=== PATIENT | male | born 1960 | race Caucasian/White ===

== ENCOUNTER 2019-04-18 13:56 | Emergency (ER) | payer OTHER, SELFPAY ==
--- NOTE | ~2019-04-18 | XR_ITS ---
EXAMINATION: XR hand RT min 3V EXAM DATE: 04/18/2019 14:26 INDICATION: Initial encounter following injury, with pain of the right hand. Injury one week ago aft er lifting heavy toe 2. TECHNIQUE: Right hand frontal, lateral and oblique projections obtained and reviewed. There is no pr ior study for comparison. FINDINGS: Right metacarpal bones are unremarkable. There is mild polyarticular primary osteoarthriti s. There are no acute fractures or dislocations identified. There is no subcutaneous gas. The soft tissue is unremarkable. There are no radiopaque foreign bodies. IMPRESSION: 1. XR hand RT min 3V exam without acute osseous findings. 2. Mild polyarticular osteoarthritis. Reviewed, dictated and finalized at location B. [employer]
[2019-04-18 14:05] VITALS: BP 153/74; PULSE 82; RESP 20; TEMP 36.6; O2SAT 97
--- NOTE | 2019-04-18 14:45 | ED.UPPEXIN ---
HPI - Extremity Injury (Upper) General Chief Complaint: Extremity Injury, Upper Stated Complaint: rt hand injury Time Seen by Provider: 04/18/19 14:30 Source: patient and RN notes reviewed History of Present Illness HPI narrative: Patient is a 58-year-old male that presents the urgent care with complaints of right hand pain. Patient states that he was carrying a tote approximately 1 week ago and caused no his hand to separate between the third and fourth digits. Patient states he heard something pop at that time.. Patient states that it is now causing him increased pain with any movement. States that it is increased pain when trying to make a fist. No other acute complaints. No acute distress noted. Patient had a plan of care. Related Data Home Medications Medication Instructions Recorded Confirmed allopurinol 100 mg tablet 100 mg PO BID 03/29/19 04/18/19 aspirin 81 mg tablet,delayed 81 mg PO DAILY 03/29/19 release atorvastatin 20 mg tablet 20 mg PO DAILY 03/29/19 candesartan 32 mg tablet 32 mg PO DAILY 03/29/19 04/18/19 diltiazem HCl 120 mg 120 mg PO DAILY 03/29/19 04/18/19 capsule,extended release 24 hr flaxseed oil 1,000 mg capsule 1,000 mg PO TID 03/29/19 04/18/19 sitagliptin 50 mg-metformin ER 1 tablet PO BID tablet 03/29/19 04/18/19 1,000 mg tablet,extended release 24h mp Novolog Mix 70-30FlexPen U-100 04/18/19 atorvastatin 20 mg PO DAILY 04/18/19 04/18/19 dapagliflozin [Farxiga] 10 mg PO DAILY 04/18/19 04/18/19 sulindac 150 mg PO BID 04/18/19 04/18/19 Allergies Allergy/AdvReac Type Severity Reaction Status Date / Time amoxicillin Allergy Unknown RASH Verified 04/18/19 14:12 prochlorperazine Allergy Unknown AGITATION Verified 04/18/19 14:12 Review of Systems Review of Systems: Narrative: CONSTITUTIONAL: Denies fever, chills, or sweats. EYES: Denies visual changes, redness, or discharge. ENT: Denies rhinorrhea, congestion, sore throat, or otalgia. CARDIOVASCULAR: Denies chest pain, palpitations, or edema. RESPIRATORY: Denies cough or dyspnea. GASTROINTESTINAL: Denies abdominal pain, nausea, vomiting, or diarrhea. GENITOURINARY: Denies dysuria or hematuria. SKIN: Denies rash or itching. MUSCULOSKELETAL: Reports of right hand pain NEUROLOGIC: Denies headache, numbness, or weakness. PMFSH Social History Social History Smoking status: Light tobacco smoker Second hand tobacco smoke exposure: No Alcohol intake: current Comments At the time of my signature, I reviewed and agree with the nursing past medical, surgical, social, and family history. There is no relevant family history pertinent to the patient complaint. Exam Narrative: Exam Narrative: GENERAL: This is a well-nourished, well-developed patient, in no apparent distress. HEAD: normocephalic, atraumatic. EYES: PERRL. Sclera clear/white. Vision is grossly intact. EARS: External ears normal NOSE: External nose normal with no obvious nasal discharge NECK: Neck supple CARDIOVASCULAR: Regular rate and rhythm without murmurs, gallops, or rubs. RESPIRATORY: Clear to auscultation. Breath sounds equal bilaterally. No wheezes, rales, or rhonchi. SKIN: warm, intact with no suspicious lesions or rash, good texture and turgor. NEURO: awake, alert, and oriented to person, place and time. There were no obvious focal neurologic abnormalities. EXTREMITIES: No obvious deformity, ecchymosis, edema to the right hand. Mild pinpoint tenderness to the palmar aspect between the third and fourth digit. Positive strong right radial pulse with capillary refill less than 2 seconds. Increased pain with making a fist of the right hand. Course Vital Signs Vital signs: Vital Signs Temperature 97.8 F 04/18/19 14:05 Pulse Rate 82 04/18/19 14:05 Respiratory Rate 20 04/18/19 14:05 Blood Pressure 153/74 H 04/18/19 14:05 Pulse Oximetry 97 04/18/19 14:05 Temperature 97.8 F 04/18/19 14:05 Pulse Rate 82 04/18/19 14:05 Respiratory R
== END 2019-04-18 14:54 | disposition home or self-care (01) ==
PROVIDERS: Emergency Provider Nurse Practitioner Family; PCP Internal Medicine
DX: S60.221A Contusion of right hand, initial encounter (principal); X50.9XXA Other and unspecified overexertion or strenuous movements or postures, initial encounter; E78.00 Pure hypercholesterolemia, unspecified; I10 Essential (primary) hypertension; M10.9 Gout, unspecified; E11.9 Type 2 diabetes mellitus without complications
CPT/HCPCS: 73130; 99213; G0463

== ENCOUNTER 2020-04-11 08:37 | Outpatient (NON) | payer OTHER, SELFPAY ==
[2020-04-11 21:57] LABS: SARS-CoV-2 RNA PCR Positive
== END 2020-04-11 08:38 ==
LOC: ANHCOVIDDT 08:37
PROVIDERS: PCP Internal Medicine; Visit Provider Internal Medicine
DX: U07.1 COVID-19 (principal)
CPT/HCPCS: C9803; U0003; U0005

== ENCOUNTER 2020-06-12 01:08 | Emergency (ER) | payer OTHER, SELFPAY ==
--- NOTE | ~2020-06-12 | XR_ITS ---
XR chest 1V portable 06/12/2020 01:40 Indication: Chest pain Procedure: AP portable chest Comparison: Comparison to multiple prior studies sequentially, with oldest reviewed study dated 09/01. Findings: There are bilateral perihilar infiltrates with peribronchial thickening. No significant eff usion or pneumothorax. Heart size is normal. No acute osseous abnormality. Impression: 1: Bilateral perihilar infiltrates, suspicious for pneumonia. Reviewed, dictated and finalized at location A. Impression: 1: Bilateral perihilar infiltrates, suspicious for pneumonia.
--- NOTE | 2020-06-12 01:18 | PC.NURSE ---
Pt presents to ED with with complaints of chest tightness that onset at 2230 while at home watching tv. 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 Pt rates chest pain 10/10 at this time. Pt is alert and oriented x4 and in no obvious distress at this time. Breathing is even and unlabored. Pt denies sob. EDMD presented to bedside. Call button and personal items within reach. Pt advised to press call button for assistance.
[2020-06-12 01:25] VITALS: BP 167/83; PULSE 113; RESP 23; TEMP 36.7; O2SAT 94
[2020-06-12 01:26] VITALS: BP 167/83; PULSE 113; RESP 23; TEMP 36.7; O2SAT 94
[2020-06-12 01:32] VITALS: O2SAT 94
--- NOTE | 2020-06-12 01:34 | PC.NURSE ---
CXR completed at bedside.
[2020-06-12 01:46] LABS: Basophils Percent Auto 0.4 % (0.2-1.2); Eosinophils Absolute Auto 0.1 K/mm3 (0-0.3); Eosinophils Percent Auto 1.5 % (0-4.4); Hematocrit 45.3 % (42.0-52.0); Hemoglobin 15.4 g/dL (14.0-18.0); Immature Granulocyte Absolute 0.05 K/mm3 (0.00-0.031); Immature Granulocyte Percent A 0.5 % (0-0.5); Lymphocytes Absolute Auto 2.02 K/mm3 (0.9-3.2); Lymphocytes Percent Auto 21.3 % (18.3-44.2); Mean Corpuscular Hemoglobin 29.6 pg (26-34); Mean Corpuscular Volume 86.9 fl (80-100); Mean Platelet Volume 10.4 fl (7.4-10.4); Monocytes Absolute Auto 0.6 K/mm3 (0.1-0.6); Monocytes Percent Auto 6.8 % (2.6-8.5); Neutrophils Absolute Auto 6.6 K/mm3 (1.3-6.7); Neutrophils Percent Auto 69.5 % (45.5-73.1); Platelet Count Result 239 k/mm3 (150-375); Red Blood Count 5.21 M/mm3 (4.6-6.20); Red Cell Distribution Width 14.4 % (11.5-14.5); White Blood Count 9.5 K/mm3 (4.5-10.0)
--- NOTE | 2020-06-12 02:02 | ED.GENADULT ---
HPI - General Adult General Chief complaint: Chest Pain <Wild Green MD - Last Filed: 06/12/20 05:48> Stated complaint: chest tightness <Wild Green MD - Last Filed: 06/12/20 05:48> Time Seen by Provider: 06/12/20 01:30 <Wild Green MD - Last Filed: 06/12/20 05:48> History of Present Illness HPI narrative: Patient is a 60-year-old gentleman who presents to the emergency department with chief complaint of chest discomfort. Patient reports he got his second COVID-19 vaccine today and subsequently has started having tightness in his low chest that radiates up to his left arm. Patient states that it was moderate to severe in severity. But now it is turned to mild. Patient states that when it was really severe he felt slightly short of breath and felt diaphoretic. <Wild Green MD - Last Filed: 06/12/20 05:48> Related Data Home medications: Home Medications Medication Instructions Recorded Confirmed allopurinol 100 mg tablet 100 mg PO BID 03/29/19 02/03/20 aspirin 81 mg tablet,delayed 81 mg PO DAILY 03/29/19 02/03/20 release flaxseed oil 1,000 mg capsule 1,000 mg PO TID 03/29/19 02/03/20 sulindac 150 mg PO BID 04/18/19 02/03/20 <Wild Green MD - Last Filed: 06/12/20 05:48> Allergies/adverse reactions: Allergies Allergy/AdvReac Type Severity Reaction Status Date / Time amoxicillin Allergy Unknown RASH Verified 02/03/20 09:31 prochlorperazine Allergy Unknown AGITATION Verified 02/03/20 09:31 <Wild Green MD - Last Filed: 06/12/20 05:48> Review of Systems Review of Systems: Narrative: A 10 system review of systems was completed on the patient and is negative except for what is stated in the HPI. Nursing and ancillary documentation was reviewed. <Wild Green MD - Last Filed: 06/12/20 05:48> [facility] Family History Family History: Family History Mother Hypertension Family history of diabetes mellitus in first degree relative Family history of obesity Family history of elevated blood lipids Family history of heart disease in male family member before age 55 Father Family history of chronic obstructive pulmonary disease Malignant neoplasm of prostate Grandparent Family history of obesity Family history of elevated blood lipids Family history of arthritis Diabetes mellitus <Wild Green MD - Last Filed: 06/12/20 05:48> Social History Social History: Social History Smoking status: Former smoker Second hand tobacco smoke exposure: No Alcohol intake: current <Wild Green MD - Last Filed: 06/12/20 05:48> Exam Narrative: Exam Narrative: GENERAL: Well-appearing, well-nourished, and in no acute distress. HEAD: Normocephalic, atraumatic. EYES: PERRLA and EOMI. ENT: Nares clear, no rhinorrhea or epistaxis. Mucous membranes moist. NECK: Supple. CHEST: Clear to auscultation. No respiratory distress. HEART: Regular rate and rhythm. No murmur heard. Normal peripheral pulses. ABDOMEN: Soft, nontender, nondistended, normal active bowel sounds. EXTREMITIES: Normal range of motion. No edema. SKIN: Warm, dry, no rash. NEURO: No focal deficits. Alert and oriented x3. PSYCH: Normal mood and affect. <Wild Green MD - Last Filed: 06/12/20 05:48> Course Course Emergency Course: EKG is sinus rhythm rate of [address] elevation or ST depression <Wild Green MD - Last Filed: 06/12/20 05:48> Vital Signs Vital signs: Vital Signs Temperature 36.7 C 06/12/20 01:25 Pulse Rate 113 H 06/12/20 01:25 Respiratory Rate 23 H 06/12/20 01:25 Blood Pressure 167/83 H 06/12/20 01:25 Pulse Oximetry 94 06/12/20 01:25 Temperature 37.1 C 06/12/20 06:00 Pulse Rate 93 06/12/20 06:00
[2020-06-12 02:10] LABS: Troponin I < 0.012 ng/mL (0.000-0.034)
[2020-06-12] MEDS: ASPIRIN 81 MG CHEWABLE TABLET 324 MG PO (02:10)
--- NOTE | 2020-06-12 02:43 | PC.NURSE ---
Pt assisted to bedside to urinal and is now back in bed resting on cart with call button and personal items within reach. remains at bedside with call button and personal items within reach. Advised to press call button for assistance.
[2020-06-12 03:00] VITALS: BP 150/73; PULSE 98; RESP 23; O2SAT 94
--- NOTE | 2020-06-12 03:19 | PC.NURSE ---
Pt resting comfortably on cart with at bedside. No complaints or concerns voiced at his time. Advised to press call button for assistance.
--- NOTE | 2020-06-12 03:55 | PC.NURSE ---
Pt resting on cart in its lowest position with call button and personal items within reach. Pt denies all pain and discomfort at this time, vitals are stable and pt in no obvious distress at this time. remains at bedside. Advised to press call button for assistance.
[2020-06-12 04:28] LABS: INR 0.9; Prothrombin Time 12.4 Seconds (11.1-14.7)
[2020-06-12 04:29] LABS: Partial Thromboplastin Time 25.5 SECONDS (22.3-36.8)
--- NOTE | 2020-06-12 04:29 | PC.NURSE ---
Pt denies all pain and discomfort at this time. Vitals remain stable and is at bedside. Call button and personal items within reach. Pt advised to press call button for assistance.
[2020-06-12 04:31] LABS: D Dimer 0.43 ug/mL (<0.48)
[2020-06-12 04:49] LABS: Troponin I < 0.012 ng/mL (0.000-0.034)
--- NOTE | 2020-06-12 05:05 | PC.NURSE ---
Pt provided ice water per ok from EDMD. remains at bedside. Pt updated on poc. All questions and concerns addressed.
[2020-06-12 05:20] VITALS: BP 135/74; PULSE 96; RESP 21; O2SAT 96
[2020-06-12 05:32] LABS: Alanine Aminotransferase 30 U/L (4-50); Albumin Level 4.3 g/dL (3.5-5.1); Alkaline Phosphatase 110 U/L (38-126); Anion Gap 8 mmol/L (8-16); Aspartate Amino Transferase 38 U/L (17-59); Bilirubin,Total 0.3 mg/dL (0.2-1.3); Blood Urea Nitrogen 25 mg/dL (9-20); Carbon Dioxide 26 mmol/L (22-30); Chloride 104 mmol/L (98-107); Estimated Glomerular Filt Rate > 60; Glucose 164 mg/dL (75-110); Lipase 66 U/L (23-300); Potassium 4.2 mmol/L (3.4-5.0); Sodium 138 mmol/L (137-145)
[2020-06-12 06:00] VITALS: BP 164/84; PULSE 93; RESP 21; TEMP 37.1; O2SAT 95
--- NOTE | 2020-06-12 06:06 | PC.NURSE ---
Pt dc home with alert, stable and in no obvious distress. Pt advised to follow up with pcp and voiced his understanding.
--- NOTE | 2020-06-12 06:21 | PC.NURSE ---
Pt alert and oriented x4. Denies all pain and discomfort at this time. remains at bedside. Call button and personal items within reach. Advised to press call button for assistance.
--- NOTE | 2020-06-12 06:30 | PC.NURSE ---
Pt provided urinal to urinate at bedside. Pt with steady gait. Pt now back in bed and resting on cart in its lowest position. Updated on poc with call button and personal items. Advised to press call button for assistance.
--- NOTE | 2020-06-12 10:53 | ECG_ITS ---
Measurements Intervals [place] Rate: 103 P: 51 CO: 169 QRS: 15 QRSD: 93 T: -4 QT: 319 QTc: 419 Interpretive Statements SINUS TACHYCARDIA CONSIDER INFERIOR INFARCT, AGE INDETERMINATE BASELINE ARTIFACT- I, II, III, AVR, V2 ABNORMAL ECG Electronically Signed On 06-12-2020 11:04:47 CDT by Sascha Vazquez D.O.
== END 2020-06-12 06:15 | disposition home or self-care (01) ==
PROVIDERS: Emergency Provider Emergency Medicine; PCP Internal Medicine
DX: R07.89 Other chest pain (principal); Z86.16 Personal history of COVID-19; Z87.891 Personal history of nicotine dependence; R00.0 Tachycardia, unspecified; R94.31 Abnormal electrocardiogram [ECG] [EKG]; R91.8 Other nonspecific abnormal finding of lung field
CPT/HCPCS: 36415; 71045; 80053; 83690; 84484; 85025; 85380; 85610; 85730; 93005; 99284; A9270

== ENCOUNTER 2020-08-17 11:38 | Outpatient (CLI) | payer OTHER, SELFPAY ==
--- NOTE | ~2020-08-17 | XR_ITS ---
EXAMINATION: XR chest 2V DATE: 08/17/2020 11:51 INDICATION: Abnormal findings on diagnostic imaging chest TECHNIQUE: PA and lateral views of the chest are obtained. COMPARISON: 06/12/2020 FINDINGS: The lungs are free of acute opacities. There is no pleural effusion or pneumothorax. The ca rdiomediastinal silhouette is normal. There are bridging osteophytes at multiple levels in the spine, consistent with diffuse idiopathic skeletal hyperostosis (DISH). IMPRESSION: 1. No acute cardiopulmonary abnormality. Reviewed, dictated and finalized at location B.
== END 2020-08-17 11:39 | disposition home or self-care (01) ==
PROVIDERS: PCP Internal Medicine; Visit Provider Internal Medicine
DX: R93.89 Abnormal findings on diagnostic imaging of other specified body structures (principal)
CPT/HCPCS: 71046

== ENCOUNTER 2020-09-07 10:47 | Emergency (ER) | payer OTHER, SELFPAY ==
--- NOTE | ~2020-09-07 | CT_ITS ---
EXAMINATION: CT abd pelvis lumbar wo con EXAM DATE: 09/07/2020 13:45 INDICATION: Left low back pain/hip pain radiating to groin . Fell 2 weeks ago. History of back surger y. TECHNIQUE: Spiral CT of the abdomen and pelvis and lumbar spine was performed without contrast. Axi al, coronal and sagittal images of the abdomen and pelvis were reviewed. Axial, coronal and sagittal images of the lumbar spine were reviewed. The dose-length product (DLP) for this examination was 173 1.84 mGy-cm. The exposure was tailored according to patient size (auto mA exposure control), and ite rative reconstruction (ASIR) was used as additional dose reduction technique. Comparison is made to p rior examination from 07/13/2017. FINDINGS: Abdominal wall mesh, hernia repair. The liver, spleen, adrenal glands and pancreas are unr emarkable. Gallbladder is unremarkable. No biliary obstruction. There is no nephrolithiasis or hyd ronephrosis. The prostate is unremarkable. The bladder is undistended at time of imaging. There i s no retroperitoneal or pelvic lymphadenopathy. There is mild scattered arteriosclerotic disease. There are no findings to suggest appendicitis. There is mild descending colonic colonic diverticulosi s. There is no adjacent inflammatory change to suggest diverticulitis. The stomach and small bowel a re unremarkable. There is expected amount of colonic stool. No free intraperitoneal gas. The hea rt is normal in size. There are no pericardial or pleural effusions. Right basilar subsegmental ate lectasis, with elevated right hemidiaphragm. Lumbar spine: There are no acute fractures identified. Posterior fusion of the spinous processes at L 3-4 and L4-5. Moderate to severe disc disease at all lumbar levels with large endplate osteophytes. T he vertebral bodies are aligned in the AP dimension. Severe lumbar facet arthropathy. Severe central canal stenosis L2-3, L3-4 and L4-5. Severe right neural foraminal stenosis L5-S1, moderate to severe on the left and bilaterally at L4-5. IMPRESSION: 1. No acute intra-abdominal or lumbar findings. 2. Elevated right hemidiaphragm, right basilar subsegmental atelectasis. 3. Severe mid lumbar central canal stenosis L2-3, L3-4 and L4-5. Reviewed, dictated and finalized at location B.
[2020-09-07 11:32] VITALS: BP 139/78; PULSE 110; RESP 18; TEMP 36.2; O2SAT 97
[2020-09-07 11:52] LABS: Basophils Percent Auto 0.5 % (0.2-1.2); Eosinophils Absolute Auto 0.1 K/mm3 (0-0.3); Eosinophils Percent Auto 1.5 % (0-4.4); Hematocrit 49.1 % (42.0-52.0); Hemoglobin 15.5 g/dL (14.0-18.0); Immature Granulocyte Absolute 0.05 K/mm3 (0.00-0.031); Immature Granulocyte Percent A 0.6 % (0-0.5); Lymphocytes Absolute Auto 1.54 K/mm3 (0.9-3.2); Lymphocytes Percent Auto 19.2 % (18.3-44.2); Mean Corpuscular HGB Conc 31.6 g/dl (32-36); Mean Corpuscular Hemoglobin 27.9 pg (26-34); Mean Corpuscular Volume 88.5 fl (80-100); Mean Platelet Volume 9.9 fl (7.4-10.4); Monocytes Absolute Auto 0.6 K/mm3 (0.1-0.6); Monocytes Percent Auto 7.4 % (2.6-8.5); Neutrophils Absolute Auto 5.7 K/mm3 (1.3-6.7); Neutrophils Percent Auto 70.8 % (45.5-73.1); Platelet Count Result 235 k/mm3 (150-375); Red Blood Count 5.55 M/mm3 (4.6-6.20); Red Cell Distribution Width 14.2 % (11.5-14.5)
[2020-09-07 11:56] LABS: Add Urine Microscopic? YES; Appearance Urine Clear (Clear); Bilirubin Urine Negative (Negative); Blood Urine Negative (Negative); Color Urine Yellow (Yellow); Glucose Urine UA 3+ mg/dL (Negative); Ketones Urine Negative (Negative); Leukocyte Esterase Ur Negative LEU/UL (Negative); Mucus Urine Rare /lpf; Nitrate Urine Negative (Negative); Protein Urine Negative (Negative); RBC Urine 0-2 /hpf (0-2); Urobilinogen Urine Negative mg/dL (<2.0); WBC Urine 0-3 /hpf
--- NOTE | 2020-09-07 13:29 | ED.BACK ---
HPI - Back Pain/Injury General Chief Complaint: Back Pain/Injury Stated Complaint: flank/back pain radiating to groin Time Seen by Provider: 09/07/20 12:38 Source: patient Mode of arrival: ambulatory Limitations: no limitations History of Present Illness HPI Narrative: This is a 60-year-old male that presents to the emergency department for left-sided low back pain x5 days. Reports the pain is constant. It is intermittently more sharp especially with movement. Pain radiates into his groin. Reports he did have a ground-level fall about a week ago. The next day he drove home from his vacation. He then started to have low back pain upon arrival home. He does have history of chronic back problems and has had lumbar spine surgery in the past. Reports this exacerbation has lasted longer than usual. Denies fever, vomiting, dysuria, or hematuria. Related Data Home Medications Medication Instructions Recorded Confirmed allopurinol 100 mg tablet 100 mg PO BID 03/29/19 08/02/20 aspirin 81 mg tablet,delayed 81 mg PO DAILY 03/29/19 08/02/20 release flaxseed oil 1,000 mg capsule 3,000 mg PO ONCE cap 08/02/20 08/02/20 omeprazole 20 mg capsule,delayed 20 mg PO DAILY cap 08/02/20 08/02/20 release sulindac 150 mg tablet 200 mg PO ONCE tablet 08/02/20 08/02/20 Allergies Allergy/AdvReac Type Severity Reaction Status Date / Time amoxicillin Allergy Unknown RASH Verified 09/07/20 11:34 prochlorperazine Allergy Unknown AGITATION Verified 09/07/20 11:34 Review of Systems Review of Systems: Narrative: CONSTITUTIONAL: Denies fever GASTROINTESTINAL: Reports nausea. Denies abdominal pain, vomiting GENITOURINARY: Denies dysuria or hematuria. SKIN: Denies rash MUSCULOSKELETAL: Reports back pain, joint pain, and myalgia. NEUROLOGIC: Denies numbness, or weakness. All systems reviewed & are unremarkable except as noted in HPI and below PMFSH Past Medical History Medical History (Updated 09/07/20 @ 14:38 by Lissette Trammell PA-C) COVID-19 Gastro-esophageal reflux disease without esophagitis Mixed hyperlipidemia Morbid obesity Type 2 diabetes mellitus without complication, with long-term current use of insulin Family History Family History Mother Hypertension Family history of diabetes mellitus in first degree relative Family history of obesity Family history of elevated blood lipids Family history of heart disease in male family member before age 55 Father Family history of chronic obstructive pulmonary disease Malignant neoplasm of prostate Grandparent Family history of obesity Family history of elevated blood lipids Family history of arthritis Diabetes mellitus Social History Social History (Updated 08/02/20 @ 11:34 by Brit Matias MA) Smoking status: Former smoker Tobacco type: cigars Second hand tobacco smoke exposure: No Alcohol intake: current Drinks per week: 4 Gender identity (if verbalized by the patient): Male Exam Narrative: Exam Narrative: GENERAL: Well-appearing, obese, and in no acute distress. HEAD: Normocephalic, atraumatic. EYES: EOMI. CHEST: Clear to auscultation. No respiratory distress. No wheezes rales or rhonchi HEART: Regular rate and rhythm. No murmur heard. Normal peripheral pulses. ABDOMEN: Soft, nontender, nondistended, normal active bowel sounds. No CVA tenderness BACK: No midline spinal tenderness EXTREMITIES: Normal range of motion. No edema. Strength equal in bilateral lower extremities (5/5) SKIN: Warm, dry, no rash. NEURO: No focal deficits. Alert and oriented x3. PSYCH: Normal mood and affect Course Vital Signs Vital signs: Vital Signs Temperature 97.1 F L 09/07/20 11:32 Pulse Rate 110 H 09/07/20 11:32 Respiratory Rate 18 09/07/20 11:32 Blood Pressure 139/78 09/07/20 11:32 Pulse Oximetry 97 09/07/20 11:32 Temperature 97.1 F L 09/07/20 11:32 Pulse Rate 110 H 09/07/20
[2020-09-07] MEDS: ACETAMINOPHEN 500 MG TABLET 1000 MG PO (13:47)
[2020-09-07] MEDS: diazePAM INJ (*CRX) 10 MG/2 ML SYRINGE 5 MG IM (13:48)
[2020-09-07 14:20] LABS: Anion Gap 13 mmol/L (8-16); Blood Urea Nitrogen 20 mg/dL (9-20); Calcium 9.9 mg/dL (8.4-10.2); Carbon Dioxide 23 mmol/L (22-30); Chloride 105 mmol/L (98-107); Estimated CRCL calculation 118 ml/min; Estimated Glomerular Filt Rate > 60; Glucose 133 mg/dL (75-110); Potassium 4.6 mmol/L (3.4-5.0); Sodium 141 mmol/L (137-145)
== END 2020-09-07 15:00 | disposition home or self-care (01) ==
PROVIDERS: Emergency Provider Family Medicine; PCP Internal Medicine
DX: M48.061 Spinal stenosis, lumbar region without neurogenic claudication (principal); Z86.16 Personal history of COVID-19; K21.9 Gastro-esophageal reflux disease without esophagitis; E78.2 Mixed hyperlipidemia; E66.01 Morbid (severe) obesity due to excess calories; Z68.42 Body mass index [BMI] 45.0-49.9, adult; E11.9 Type 2 diabetes mellitus without complications; Z79.4 Long term (current) use of insulin; Z79.82 Long term (current) use of aspirin; Z87.891 Personal history of nicotine dependence
CPT/HCPCS: 36415; 72131; 74176; 80048; 81001; 85025; 96372; 99284; A9270; J3360

== ENCOUNTER → 2021-03-06 03:42 | Outpatient (CLI) | payer OTHER, SELFPAY ==
[2021-03-06 18:29] LABS: SARS-CoV-2 RNA PCR Negative
== END ==
PROVIDERS: PCP Internal Medicine; Visit Provider Internal Medicine
DX: R68.89 Other general symptoms and signs (principal); Z20.822 Contact with and (suspected) exposure to COVID-19
CPT/HCPCS: C9803; U0003; U0005

== ENCOUNTER 2021-04-30 10:07 | Outpatient (CLI) | payer OTHER, SELFPAY ==
--- NOTE | 2021-05-02 16:06 | WPDHOLTEREM ---
Holter/Event Monitor Holter/Event Monitor Date of procedure: 04/30/21 Holter/Event Procedure: 48 Hr Holter Monitor Indications: Palpitations Conclusion: 1. 48 hour holter monitor on 04/30/21. 2. Predominant rhythm is sinus rhythm. HR range 60-133 bpm; average HR 85 bpm. 3. There are 25 premature supraventricular complexes and 1 supraventricular couplet. One episode of atrial tachycardia at 167 bpm lasting 4 beats. 4. There are 467 premature ventricular complexes, 2 ventricular couplets, 9 ventricular bigeminy and 9 ventricular trigeminy. No ventricular tachycardia. 5. No sinoatrial or atrioventricular blocks. No significant pauses greater than 2 seconds. 6. Patient reports symptoms of fluttering which demonstrate sinus rhythm, HR range 76-94 bpm.
== END 2021-04-30 10:08 | disposition home or self-care (01) ==
LOC: ANHCARD 10:08
PROVIDERS: PCP Internal Medicine; Visit Provider Nurse Practitioner
DX: R00.2 Palpitations (principal)
CPT/HCPCS: 93225; 93226

== ENCOUNTER 2021-10-24 13:00 | Emergency (ER) | payer OTHER, SELFPAY ==
--- NOTE | 2021-10-24 13:04 | ED.NAVMDI ---
HPI - Nausea/Vomiting/Diarrhea General Chief complaint: Nausea/Vomiting/Diarrhea Stated complaint: DIARRHEA Time Seen by Provider: 10/24/21 13:05 Source: patient and RN notes reviewed Mode of arrival: ambulatory Limitations: no limitations History of Present Illness HPI Narrative: 61-year-old male presents to the [facility] with complaints of diarrhea since Thursday, 5 days ago. states he has been maxing out on Imodium. Complaining of abdominal cramping. Denies pain, reports HX of diverticulitis and states does not feel like that. Recently just got back from [place]. Reports that hestarted a keto diet on September 30 Has had 2 loose stools today, 4 loose stools yesterday Patient states that he thought we could at least do or send blood work or stool culture Reports that he is unable to get a hold of his primary MD elicited complaint: diarrhea Onset (ago): day(s) Related Data Home Medications Medication Instructions Recorded Confirmed aspirin 81 mg tablet,delayed 81 mg PO DAILY 03/29/19 08/27/21 release flaxseed oil 1,000 mg capsule 3,000 mg PO ONCE 08/02/20 08/27/21 omeprazole 20 mg capsule,delayed 20 mg PO DAILY 08/02/20 08/27/21 release sulindac 150 mg tablet 200 mg PO ONCE 08/02/20 02/05/21 multivitamin (Daily Multi-Vitamin 1 tablet PO DAILY 10/09/20 08/27/21 tablet) sildenafil (pulm.hypertension) 20 20 mg PO .COMPLEX PRN sexual 02/05/21 08/27/21 mg tablet activity allopurinol 100 mg tablet 300 mg PO DAILY 08/27/21 08/27/21 Allergies Allergy/AdvReac Type Severity Reaction Status Date / Time amoxicillin Allergy Unknown RASH Verified 10/24/21 13:08 prochlorperazine Allergy Unknown AGITATION Verified 10/24/21 13:08 Review of Systems Review of Systems: All systems reviewed & are unremarkable except as noted in HPI and below Constitutional: Constitutional: Reports no additional constitutional complaints, Denies chills and Denies fever(s) Eyes: Eyes: Reports no additional eye complaints ENT: Reports system reviewed and no additional complaints, except as documented Cardiovascular: Cardiovascular: Reports no additional cardiovascular complaints Respiratory: Respiratory: Reports no additional respiratory complaints Gastrointestinal: Gastrointestinal: Reports as per HPI, Denies abdominal pain, Denies bloating, Denies constipation, Reports diarrhea, Denies nausea and Denies vomiting Musculoskeletal: Musculoskeletal: Reports no additional musculoskeletal complaints Integumentary/Breasts: Skin/Breast: Reports system reviewed and no additional complaints, except as docu Neurologic: Reports system reviewed and no additional complaints, except as documented Psychiatric: Psychiatric: Reports no additional psychiatric complaints Allergic/Immunologic: Allergic/Immunologic: Reports no additional allergic/immunologic complaints PMF Past Medical History Medical History (Updated 10/24/21 @ 14:12 by Ellyn Cobb APRN) COVID-19 Gastro-esophageal reflux disease without esophagitis Mixed hyperlipidemia Morbid obesity Type 2 diabetes mellitus without complication, with long-term current use of insulin Family History Family History Mother Hypertension Family history of diabetes mellitus in first degree relative Family history of obesity Family history of elevated blood lipids Family history of heart disease in male family member before age 55 Father Family history of chronic obstructive pulmonary disease Malignant neoplasm of prostate Grandparent Family history of obesity Family history of elevated blood lipids Family history of arthritis Diabetes mellitus Social History Social History Social History: Patient stated he smokes Cigars twice a year Smoking status: Current some day smoker Tobacco type: cigars Second hand tobacco smoke exposure: No Smoking end date: 02/21/20 Marky
[2021-10-24 13:06] VITALS: BP 164/75; PULSE 95; RESP 20; TEMP 36.7; O2SAT 97
[2021-10-24 13:09] VITALS: BP 164/75; PULSE 95; RESP 20; TEMP 36.7; O2SAT 97
== END 2021-10-24 13:28 | disposition home or self-care (01) ==
PROVIDERS: Emergency Provider Nurse Practitioner; PCP Internal Medicine
DX: R19.7 Diarrhea, unspecified (principal); K21.9 Gastro-esophageal reflux disease without esophagitis; E78.2 Mixed hyperlipidemia; E11.9 Type 2 diabetes mellitus without complications; Z79.4 Long term (current) use of insulin; Z72.0 Tobacco use; Z86.16 Personal history of COVID-19; E66.01 Morbid (severe) obesity due to excess calories; Z68.41 Body mass index [BMI] 40.0-44.9, adult; Z79.82 Long term (current) use of aspirin
CPT/HCPCS: 99211; G0463

== ENCOUNTER 2022-03-10 16:13 | Emergency (ER) | payer OTHER, SELFPAY ==
--- NOTE | ~2022-03-10 | XR_ITS ---
XR knee RT min 4V DATE: 03/10/2022 17:40 INDICATION: Fall. Anterior pain below the apex of the patella when bearing weight TECHNIQUE: 4 views COMPARISON: None FINDINGS: Prominent enthesopathy of the superior pole of patella at the quadriceps tendon insertion. There is enthesopathy as well at the patellar tendon insertion. There is tricompartment osteoarthritis manifested primarily by prominent periarticular spurring, part icularly of the patella. There is mild loss of medial compartment joint space height. No fracture or dislocation or joint effusion, periosteal reaction or bone destruction is detected. No radiopaque intra-articular loose body or chondrocalcinosis is detected. Arterial calcifications. IMPRESSION: Tricompartment osteoarthritis No fracture or dislocation or joint effusion Reviewed, dictated and finalized at location A. 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
[2022-03-10 16:24] VITALS: BP 158/88; PULSE 88; RESP 14; TEMP 36.4; O2SAT 97
[2022-03-10 19:20] VITALS: BP 142/74; PULSE 83; O2SAT 98
--- NOTE | 2022-03-10 20:08 | ED.LOWEXIN ---
HPI - Extremity Injury (Lower) General Chief Complaint: Extremity Injury, Lower Stated Complaint: right knee pain Time Seen by Provider: 03/10/22 19:44 History of Present Illness HPI Narrative: Patient is a 61-year-old male who presents ER with right knee pain. Reports he stepped on his dog's paw 2 days ago which caused his knee to buckle. He has had increased pain over the anterior knee and proximal tibia since then. He has had slight swelling. No numbness or tingling. He is able to bear weight. Related Data Home Medications Medication Instructions Recorded Confirmed aspirin 81 mg tablet,delayed 81 mg PO DAILY 03/29/19 03/04/22 release flaxseed oil 1,000 mg capsule 3,000 mg PO ONCE 08/02/20 03/04/22 omeprazole 20 mg capsule,delayed 20 mg PO DAILY 08/02/20 03/04/22 release sulindac 150 mg tablet 200 mg PO ONCE 08/02/20 03/04/22 multivitamin (Daily Multi-Vitamin 1 tablet PO DAILY 10/09/20 03/04/22 tablet) sildenafil (pulm.hypertension) 20 20 mg PO .COMPLEX PRN sexual 02/05/21 03/04/22 mg tablet activity Allergies Allergy/AdvReac Type Severity Reaction Status Date / Time amoxicillin Allergy Unknown RASH Verified 03/04/22 11:35 prochlorperazine Allergy Unknown AGITATION Verified 03/04/22 11:35 Review of Systems Constitutional: Constitutional: Denies chills and Denies fever(s) Musculoskeletal: Musculoskeletal: Reports arthralgias, Reports joint swelling and Denies muscle cramps Integumentary/Breasts: Skin/Breast: Denies rash Neurologic: Denies focal weakness and Denies numbness [facility] Past Medical History Medical History COVID-19 Gastro-esophageal reflux disease without esophagitis Mixed hyperlipidemia Morbid obesity Type 2 diabetes mellitus without complication, with long-term current use of insulin Family History Family History Mother Hypertension Family history of diabetes mellitus in first degree relative Family history of obesity Family history of elevated blood lipids Family history of heart disease in male family member before age 55 Father Family history of chronic obstructive pulmonary disease Malignant neoplasm of prostate Grandparent Family history of obesity Family history of elevated blood lipids Family history of arthritis Diabetes mellitus Social History Social History (Updated 03/04/22 @ 11:47 by Marvin Sanchez [facility]) Social History: Patient stated he smokes Cigars twice a year Smoking status: Current some day smoker Tobacco type: cigars Second hand tobacco smoke exposure: No Smoking end date: 02/21/20 Alcohol intake: current Drinks per week: 4 Substance use: never Substance use type: does not use Lack of Transportation: No Lack of Food: Never True Current Housing: I Have Housing Concerned About Future Housing: No Difficulty Paying Gas/Electric Bills: No Difficulty Paying for Meds: No Currently Unemployed: No Education: Associate Degree Difficulty w/ Childcare or Family Care: No Gender identity (if verbalized by the patient): Male Exam Narrative: GENERAL: Well-appearing, well-nourished, and in no acute distress. HEAD: Normocephalic, atraumatic. EXTREMITIES: Normal range of motion. No edema. Right knee with slight effusion. No reproducible anterior joint line tenderness. SKIN: Warm, dry, no rash. NEURO: Alert and oriented x3. PSYCH: Normal mood and affect. Course Course Emergency Course: Recommend rest/ice/compression/elevation Patient will take some anti-inflammatories. He may benefit from a knee brace that can be bought [id number] patient verbalized understanding of this. Vital Signs Vital signs: Vital Signs Temperature 97.6 F 03/10/22 16:24 Pulse Rate 88 03/10/22 16:24 Respiratory Rate 14 03/10/22 16:24 Blood Pressure 158/88 H 03/10/22 16:24 Pulse Oximetry 97 03/10/22 16:24
== END 2022-03-10 20:30 | disposition home or self-care (01) ==
PROVIDERS: Emergency Provider Emergency Medicine; PCP Internal Medicine
DX: S83.91XA Sprain of unspecified site of right knee, initial encounter (principal); M17.11 Unilateral primary osteoarthritis, right knee; M25.461 Effusion, right knee; E78.2 Mixed hyperlipidemia; E11.9 Type 2 diabetes mellitus without complications; E66.01 Morbid (severe) obesity due to excess calories; Z68.41 Body mass index [BMI] 40.0-44.9, adult; K21.9 Gastro-esophageal reflux disease without esophagitis; F17.290 Nicotine dependence, other tobacco product, uncomplicated; Z86.16 Personal history of COVID-19; Z79.4 Long term (current) use of insulin; Z79.84 Long term (current) use of oral hypoglycemic drugs; Z79.82 Long term (current) use of aspirin; X50.9XXA Other and unspecified overexertion or strenuous movements or postures, initial encounter
CPT/HCPCS: 73564; 99283

== ENCOUNTER 2022-05-05 09:25 | Outpatient (CLI) | payer OTHER, SELFPAY ==
--- NOTE | ~2022-05-05 | MR_ITS ---
MRI of the cervical spine Clinical History: Radiculopathy Technique: Axial T2-weighted and gradient images, and sagittal T1-weighted, T2-weighted, and STIR za ges were acquired. Findings: There is no fracture or subluxation of the cervical spine. Vertebral bodies maintain normal height and alignment. No suspicious bone marrow signal abnormality seen. At C2-C3, there is mild disc osteophyte compresses. No spinal canal stenosis, cord compression, or ne ural foraminal narrowing. At C3-C4, there is disc osteophyte complex, resulting in mild canal stenosis and mild flattening of t he ventral cord, especially on the left side. Bilateral neural foramina are preserved. At C4-C5, disc osteophyte complex is present, resulting in mild canal stenosis and cord compression. There is bilateral neural foraminal narrowing. At C5-C6, disc osteophyte complex results in moderate canal stenosis and cord compression, right side worse than left. There is bilateral neural foraminal narrowing. At C6-C7, disc osteophyte complex results in moderate canal stenosis and cord compression. There is b ilateral neural foraminal narrowing. No abnormal signal evident in the spinal cord itself. Paravertebral soft tissues are unremarkable. Impression: Moderate canal stenosis and cord compression at C5-C6 and C6-C7, related to disc osteophyte complexes . Bilateral neural foraminal narrowing at these levels. Mild canal stenosis and ventral cord compression at C4-C5, related to disc osteophyte complex. Bilate ral neural foraminal narrowing. Mild canal stenosis and mild flattening of the ventral cord at C3-C4, related to disc osteophyte comp marnie. Reviewed, dictated and finalized at [facility]. ET RESEARCH ASSISTANT Impression: Moderate canal stenosis and cord compression at C5-C6 and C6-C7, related to dis c osteophyte complexes. Bilateral neural foraminal narrowing at these levels. Mild canal stenosis and ventral cord compression at C4-C5, related to disc oste ophyte complex. Bilateral neural foraminal narrowing. Mild canal stenosis and mild flattening of the ventral cord at C3-C4, related t o disc osteophyte complex.
== END 2022-05-05 09:26 | disposition home or self-care (01) ==
PROVIDERS: PCP Internal Medicine
DX: M54.13 Radiculopathy, cervicothoracic region (principal)
CPT/HCPCS: 72141

== ENCOUNTER 2023-10-23 13:35 | Emergency (ER) | payer OTHER, SELFPAY ==
[2023-10-23 14:10] VITALS: BP 113/71; PULSE 94; RESP 16; TEMP 36.1; O2SAT 98
--- NOTE | 2023-10-23 14:11 | ED.ABDPAIN ---
HPI - Abdominal Pain General Chief Complaint: Abdominal Pain Stated Complaint: L FLANK PAIN/LLQ PAIN Time Seen by Provider: 10/23/23 14:15 Source: patient Mode of arrival: ambulatory Limitations: no limitations History of Present Illness HPI narrative: Yang is a 63 y/o male who presents with complaints of left flank pain x10 days. He describes the pain as dull, constant and radiates into his left suprapubic area/groin. The pain is worsened with lying flat or sudden movements. He denies hematuria, urinary frequency, urgency, dysuria, fevers, chills, nausea, or vomiting. Related Data Home Medications Medication Instructions Recorded Confirmed aspirin 81 mg tablet,delayed 81 mg PO DAILY 03/29/19 10/23/23 release flaxseed oil 1,000 mg capsule 3,000 mg PO ONCE 08/02/20 10/23/23 omeprazole 20 mg capsule,delayed 20 mg PO DAILY 08/02/20 10/23/23 release sulindac 150 mg tablet 200 mg PO ONCE 08/02/20 10/23/23 multivitamin (Daily Multi-Vitamin 1 tablet PO DAILY 10/09/20 10/23/23 tablet) sildenafil (pulm.hypertension) 20 20 mg PO .COMPLEX PRN sexual 02/05/21 10/23/23 mg tablet activity insulin aspar prot-insulin aspart See Rx Instructions .Route .COMPLEX 10/01/22 10/23/23 100 unit/mL (70-30) subcutaneous pen (Novolog Mix 70-30FlexPen U-100) tirzepatide 12.5 mg/0.5 mL 10 mg subcut WEEKLY 10/23/23 10/23/23 subcutaneous pen injector (Rica) Allergies Allergy/AdvReac Type Severity Reaction Status Date / Time amoxicillin Allergy Unknown RASH Verified 10/23/23 14:05 prochlorperazine Allergy Unknown AGITATION Verified 10/23/23 14:05 Review of Systems Review of Systems: Pertinent positives per HPI. Patient denies any fever, chills, rash, headache, visual changes, dizziness, cough, runny nose, sore throat, shortness of breath, chest pain, palpitations, nausea, vomiting, diarrhea, constipation. [facility] Past Medical History Medical History COVID-19 Gastro-esophageal reflux disease without esophagitis Mixed hyperlipidemia Morbid obesity Type 2 diabetes mellitus without complication, with long-term current use of insulin Family History Family History Mother Hypertension Family history of diabetes mellitus in first degree relative Family history of obesity Family history of elevated blood lipids Family history of heart disease in male family member before age 55 Father Family history of chronic obstructive pulmonary disease Malignant neoplasm of prostate Grandparent Family history of obesity Family history of elevated blood lipids Family history of arthritis Diabetes mellitus Social History Social History Social History: Patient stated he smokes Cigars twice a year Smoking status: Current some day smoker Tobacco type: cigars Second hand tobacco smoke exposure: No Smoking end date: 02/21/20 Alcohol intake: current Drinks per week: 5 Substance use: never Substance use type: does not use Lack of Transportation: No Lack of Food: Never True Current Housing: I Have Housing Concerned About Future Housing: No Difficulty Paying Gas/Electric Bills: No Difficulty Paying for Meds: No Currently Unemployed: No Education: Associate Degree Difficulty w/ Childcare or Family Care: No Gender identity (if verbalized by the patient): Male Comments At the time of my signature, I reviewed and agree with the nursing past medical, surgical, social, and family history. There is no relevant family history pertinent to the patient complaint. Exam Narrative: General: Well-developed, well nourished, in no apparent distress. Head: Normocephalic, atraumatic. Cardio: Regular rate and rhythm, s1 and s2 normal, no murmur appreciated. Resp: Clear to auscultation bilaterally, no rhonchi, rales, wheezi
[2023-10-23 14:25] LABS: EDUAAPPEAR Clear; EDUABILI Negative; EDUABLOOD Negative; EDUACOLOR1 Yellow; EDUAGLUCOSE 3+; EDUAKETONE Negative; EDUALEUKO Negative; EDUANITRATE Negative; EDUAPH 5.5; EDUAPROTEIN Negative; EDUAUROBILI 0.2
== END 2023-10-23 14:32 | disposition short-term general hospital (02) ==
PROVIDERS: Emergency Provider Nurse Practitioner Family; PCP Internal Medicine
DX: R10.32 Left lower quadrant pain (principal); R10.9 Unspecified abdominal pain; Z87.891 Personal history of nicotine dependence; K21.9 Gastro-esophageal reflux disease without esophagitis; E78.2 Mixed hyperlipidemia; E11.9 Type 2 diabetes mellitus without complications; Z79.4 Long term (current) use of insulin; E66.01 Morbid (severe) obesity due to excess calories; Z68.41 Body mass index [BMI] 40.0-44.9, adult; Z86.16 Personal history of COVID-19; Z79.82 Long term (current) use of aspirin
CPT/HCPCS: 81003; 99212; G0463

== ENCOUNTER 2023-10-23 15:00 | Emergency (ER) | payer OTHER, SELFPAY ==
--- NOTE | ~2023-10-23 | CT_ITS ---
EXAMINATION: CT abdomen pelvis wo con DATE: 10/23/2023 18:18 INDICATION: Left flank pain TECHNIQUE: Computed tomography (CT) of the abdomen and pelvis was performed without intravenous contr ast. Automated exposure control and iterative reconstruction technique were employed. The dose-length product was 1713.52 mGy-cm. COMPARISON: 09/07/2020 FINDINGS: Eventration of the right hemidiaphragm with mild compressive atelectasis along the basilar right lowe r lobe. Heart size is normal. No pericardial or pleural effusion. Liver, gallbladder, spleen, pancrea s and bilateral adrenal glands are normal. Kidneys and ureters are normal with no urolithiasis, hydro ureteronephrosis or perinephric/ureteral stranding. There are few scattered clonic diverticula withou t adjacent inflammatory stranding to suggest diverticular colitis. No bowel obstruction. Postoperativ e change of prior ventral hernia repair. Bladder is normal. No free intraperitoneal gas or fluid. No pathologically enlarged abdominal or pelvic lymphadenopathy. Moderate lumbar and lower thoracic spond ylosis with bridging osteophytes at multiple levels consistent with diffuse idiopathic skeletal hyper ostosis (DISH). Interspinous process devices at L3-L4 and L4-L5. IMPRESSION: 1. No urolithiasis or acute intra-abdominal/pelvic process. Reviewed, dictated and finalized at location A.
[2023-10-23 15:10] VITALS: BP 122/71; PULSE 83; RESP 18; TEMP 36.5; O2SAT 96
[2023-10-23] MEDS: SODIUM CHLORIDE 0.9% IV 1,000 ML 999 ML IV CONT (17:39)
[2023-10-23] MEDS: ONDANSETRON INJ 4 MG/2 ML VIAL IV PUSH (17:40)
[2023-10-23] MEDS: MORPHINE SULFATE (*CRX) 4 MG/ML INJ IV PUSH (17:42)
[2023-10-23 17:43] LABS: Basophils Percent Auto 0.5 % (0.2-1.2); Eosinophils Absolute Auto 0.2 K/mm3 (0-0.3); Eosinophils Percent Auto 1.9 % (0-4.4); Hematocrit 46.1 % (42.0-52.0); Immature Granulocyte Absolute 0.02 K/mm3 (0.00-0.031); Immature Granulocyte Percent A 0.2 % (0-0.5); Lymphocytes Absolute Auto 1.97 K/mm3 (0.9-3.2); Lymphocytes Percent Auto 23.4 % (18.3-44.2); Mean Corpuscular HGB Conc 32.5 g/dl (32-36); Mean Corpuscular Hemoglobin 28.8 pg (26-34); Mean Corpuscular Volume 88.7 fl (80-100); Mean Platelet Volume 9.7 fl (7.4-10.4); Monocytes Absolute Auto 0.6 K/mm3 (0.1-0.6); Monocytes Percent Auto 7.5 % (2.6-8.5); Neutrophils Absolute Auto 5.6 K/mm3 (1.3-6.7); Neutrophils Percent Auto 66.5 % (45.5-73.1); Platelet Count Result 205 k/mm3 (150-375); Red Cell Distribution Width 13.7 % (11.5-14.5); White Blood Count 8.4 K/mm3 (4.5-10.0)
[2023-10-23 18:03] LABS: Alanine Aminotransferase 28 U/L (6-50); Albumin Level 4.9 g/dL (3.5-5.1); Alkaline Phosphatase 68 U/L (38-126); Anion Gap 12 mmol/L (4-12); Aspartate Amino Transferase 29 U/L (17-59); Bilirubin,Total 0.7 mg/dL (0.2-1.3); Blood Urea Nitrogen 23 mg/dL (9-20); Calcium 9.6 mg/dL (8.4-10.2); Carbon Dioxide 26 mmol/L (22-30); Chloride 100 mmol/L (98-107); Estimated CRCL calculation 108 ml/min; Estimated Glomerular Filt Rate > 60; Glucose 87 mg/dL (65-110); Sodium 138 mmol/L (137-145)
--- NOTE | 2023-10-23 19:04 | ED.GENADULT ---
HPI - General Adult General Chief complaint: Back Pain/Injury Stated complaint: Left Flank Pain Time Seen by Provider: 10/23/23 16:53 History of Present Illness HPI narrative: Patient is a 63-year-old male who presents ER with left-sided flank pain. Ongoing for 10 days. Radiates into the left lower quadrant. Has history of sciatica. No pain going down the low back. No difficulty with urination or defecation. No fevers chills or sweats. Pain is worse with laying down backwards or with physical movements. No known injury. Related Data Home Medications Medication Instructions Recorded Confirmed aspirin 81 mg tablet,delayed 81 mg PO DAILY 03/29/19 10/23/23 release flaxseed oil 1,000 mg capsule 3,000 mg PO ONCE 08/02/20 10/23/23 omeprazole 20 mg capsule,delayed 20 mg PO DAILY 08/02/20 10/23/23 release sulindac 150 mg tablet 200 mg PO ONCE 08/02/20 10/23/23 multivitamin (Daily Multi-Vitamin 1 tablet PO DAILY 10/09/20 10/23/23 tablet) sildenafil (pulm.hypertension) 20 20 mg PO .COMPLEX PRN sexual 02/05/21 10/23/23 mg tablet activity insulin aspar prot-insulin aspart See Rx Instructions .Route .COMPLEX 10/01/22 10/23/23 100 unit/mL (70-30) subcutaneous pen (Novolog Mix 70-30FlexPen U-100) tirzepatide 12.5 mg/0.5 mL 10 mg subcut WEEKLY 10/23/23 10/23/23 subcutaneous pen injector (Shaunmeseretro) Allergies Allergy/AdvReac Type Severity Reaction Status Date / Time amoxicillin Allergy Unknown RASH Verified 10/23/23 17:54 prochlorperazine Allergy Unknown AGITATION Verified 10/23/23 17:54 Review of Systems Review of Systems: All systems reviewed & are unremarkable except as noted in HPI and below Constitutional: Constitutional: Reports no additional constitutional complaints ENT: Reports system reviewed and no additional complaints, except as documented Cardiovascular: Cardiovascular: Reports no additional cardiovascular complaints Respiratory: Respiratory: Reports no additional respiratory complaints Gastrointestinal: Gastrointestinal: Reports abdominal pain, Denies nausea and Denies vomiting Musculoskeletal: Musculoskeletal: Reports back pain, Denies arthralgias, Denies joint swelling and Denies muscle cramps [facility] Past Medical History Medical History COVID-19 Gastro-esophageal reflux disease without esophagitis Mixed hyperlipidemia Morbid obesity Type 2 diabetes mellitus without complication, with long-term current use of insulin Family History Family History Mother Hypertension Family history of diabetes mellitus in first degree relative Family history of obesity Family history of elevated blood lipids Family history of heart disease in male family member before age 55 Father Family history of chronic obstructive pulmonary disease Malignant neoplasm of prostate Grandparent Family history of obesity Family history of elevated blood lipids Family history of arthritis Diabetes mellitus Social History Social History Social History: Patient stated he smokes Cigars twice a year Smoking status: Current some day smoker Tobacco type: cigars Second hand tobacco smoke exposure: No Smoking end date: 02/21/20 Alcohol intake: current Drinks per week: 5 Substance use: never Substance use type: does not use Lack of Transportation: No Lack of Food: Never True Current Housing: I Have Housing Concerned About Future Housing: No Difficulty Paying Gas/Electric Bills: No Difficulty Paying for Meds: No Currently Unemployed: No Education: Associate Degree Difficulty w/ Childcare or Family Care: No Gender identity (if verbalized by the patient): Male Exam Narrative: GENERAL: Well-appearing, well-nourished, and in no acute distress. HEAD: Normocephalic, atraumatic. ENT: Mucous me
--- NOTE | 2023-10-23 19:18 | PC.NURSE ---
Report received from MALGORZATA Ramirez. Assumed care of patient at this time.
[2023-10-23 19:44] VITALS: BP 126/64; PULSE 78; RESP 17; O2SAT 98
== END 2023-10-23 19:46 | disposition home or self-care (01) ==
PROVIDERS: Emergency Provider Emergency Medicine; PCP Internal Medicine
DX: R10.32 Left lower quadrant pain (principal); E11.9 Type 2 diabetes mellitus without complications; E78.2 Mixed hyperlipidemia; E66.01 Morbid (severe) obesity due to excess calories; Z68.41 Body mass index [BMI] 40.0-44.9, adult; K21.9 Gastro-esophageal reflux disease without esophagitis; Z86.16 Personal history of COVID-19; Z87.891 Personal history of nicotine dependence; Z90.49 Acquired absence of other specified parts of digestive tract; Z79.85 Long-term (current) use of injectable non-insulin antidiabetic drugs; Z79.82 Long term (current) use of aspirin; Z79.4 Long term (current) use of insulin; Z79.899 Other long term (current) drug therapy
CPT/HCPCS: 36415; 74176; 80053; 81003; 85025; 96361; 96374; 96375; 99284; J2270; J2405; J7030

== ENCOUNTER 2024-02-28 18:32 | Emergency (ER) | payer OTHER, SELFPAY ==
--- NOTE | 2024-02-28 18:34 | ECG_ITS ---
Test Date: 2024-02-28 18:44:05 Measurements Intervals [place] Rate: 88 P: 24 TX: 176 QRS: 9 QRSD: 87 T: 53 QT: 339 QTc: 410 Interpretive Statements SINUS RHYTHM NONSPECIFIC T-WAVE ABNORMALITY No previous ECG available for comparison Electronically Signed On 02-29-2024 12:45:56 ASSISTANT PROFESSOR OF EDUCATION by Sean Mane M.D.
[2024-02-28 18:39] VITALS: BP 135/63; PULSE 90; RESP 19; TEMP 36.4; O2SAT 97
[2024-02-28 19:09] LABS: Basophils Percent Auto 0.4 % (0.2-1.2); Eosinophils Absolute Auto 0.2 K/mm3 (0-0.3); Eosinophils Percent Auto 2.3 % (0-4.4); Hematocrit 36.6 % (42.0-52.0); Hemoglobin 11.8 g/dL (14.0-18.0); Immature Granulocyte Absolute 0.04 K/mm3 (0.00-0.031); Immature Granulocyte Percent A 0.5 % (0-0.5); Immature Platelet Fraction Pct 2.9 % (0.9-11.2); Lymphocytes Absolute Auto 1.12 K/mm3 (0.9-3.2); Lymphocytes Percent Auto 15.2 % (18.3-44.2); Mean Corpuscular HGB Conc 32.2 g/dl (32-36); Mean Corpuscular Hemoglobin 28.8 pg (26-34); Mean Corpuscular Volume 89.3 fl (80-100); Mean Platelet Volume 9.9 fl (7.4-10.4); Monocytes Absolute Auto 0.6 K/mm3 (0.1-0.6); Monocytes Percent Auto 8.5 % (2.6-8.5); Neutrophils Absolute Auto 5.4 K/mm3 (1.3-6.7); Neutrophils Percent Auto 73.1 % (45.5-73.1); Platelet Count Result 213 k/mm3 (150-375); Red Cell Distribution Width 13.7 % (11.5-14.5); White Blood Count 7.4 K/mm3 (4.5-10.0)
[2024-02-28 19:15] LABS: Alanine Aminotransferase 24 U/L (6-50); Albumin Level 4.1 g/dL (3.5-5.1); Alkaline Phosphatase 78 U/L (38-126); Anion Gap 8 mmol/L (4-12); Aspartate Amino Transferase 29 U/L (17-59); Bilirubin,Total 1.2 mg/dL (0.2-1.3); Blood Urea Nitrogen 23 mg/dL (9-20); Carbon Dioxide 25 mmol/L (22-30); Chloride 102 mmol/L (98-107); Estimated CRCL calculation 110 ml/min; Estimated Glomerular Filt Rate > 60; Glucose 105 mg/dL (65-110); Potassium 4.2 mmol/L (3.4-5.0); Sodium 135 mmol/L (137-145)
[2024-02-28 19:35] LABS: Anisocytosis 1+; Ovalocytes 1+; Platelet Estimate Adequate (Adequate); Schistocytes None Seen
[2024-02-28 19:37] LABS: D Dimer 1.24 ug/mL (<0.48)
[2024-02-28 19:43] LABS: Influenza A QL RT-PCR Negative (Negative); Influenza B QL RT-PCR Negative (Negative); RSV RNA, RT-PCR Negative (Negative); SARS-CoV-2 RNA PCR Negative (Negative)
--- NOTE | 2024-02-28 19:56 | PC.NURSE ---
pt states they would like to leave and be assessed by PCP tomorrow. pt states they need to raise their leg due to recent total knee replacement. attempted to accommodate patient by assisting them to elevate leg. this RN is unable to get ER room available to allow patient to lay down. educated pt on risk of leaving before seeing a provider and to return with any worsening symptoms. patient did not appear in any resp. distress and was wheeled out to car by spouse.
== END 2024-02-28 19:56 | disposition left against medical advice (07) ==
PROVIDERS: Physician Assistant; Emergency Provider Student in an Organized Health Care Education/Training Program; PCP Internal Medicine
DX: R06.02 Shortness of breath (principal)
CPT/HCPCS: 36415; 80053; 85025; 85055; 85380; 87637; 93005; 99199